=== PATIENT | female | born 1965 | race Caucasian/White ===

== ENCOUNTER 2020-01-30 20:40 | Emergency (ER) | payer OTHER, SELFPAY ==
[2020-01-30 20:41] VITALS: BP 182/98; PULSE 98; RESP 16; TEMP 36.4; O2SAT 99; BMI 31.0
--- NOTE | 2020-01-30 20:52 | CT_ITS ---
STUDY: CT ABDOMEN AND PELVIS WITHOUT CONTRAST REASON FOR EXAM: Female, 54 years old. LT FLANK PAIN,DYSURIA SINCE YESTERDAY,ELEVATED BP -- HX:ENDOMETRIAL ABLATION RADIATION DOSAGE (If Supplied By Facility): CTDIvol = ( 11.44 ) mGy, DLP = ( 537.49 ) mGycm TECHNIQUE: Transaxial images were obtained from the dome of the diaphragm to the symphysis pubis without oral contrast, and without intravenous contrast. Sagittal and coronal images were reconstructed. Individualized dose optimization techniques were used for this CT. COMPARISON: None. FINDINGS: The visualized lung bases are unremarkable. The visualized portions of the heart are within normal limits. Normal liver. Normal gallbladder and extrahepatic biliary system. Normal spleen. Normal pancreas. Normal bilateral adrenal glands. Normal right kidney. Up to 5 mm stones in the left kidney. Normal visualized stomach. Normal small intestine. Fecal retention in the colon. The appendix is not visualized. Normal abdominal aorta. Normal inferior vena cava. Normal retroperitoneum. Normal urinary bladder. Small fatty umbilical hernia. Normal osseous structures. CT/Abdomen/Pelvis without Cont IMPRESSION: Left renal stones. No hydronephrosis. Small fatty umbilical hernia. Colonic fecal retention. Electronically Signed: Jose Tejeda DO at 22:32 EST Tel [phone], Service support ,
[2020-01-30] MEDS: Morphine 4 MG/ML Syringe IV ×2 (21:05→22:37)
[2020-01-30] MEDS: Ondansetron 4 MG/2 ML Vial IV (21:06)
--- NOTE | 2020-01-30 21:26 | ED.DCSUM_ITS ---
- ER Visit Summary Date of Service: 01/30/20 Chief Complaint: Left flank pain History of Present Illness: The patient is a 54 F presenting with left flank pain. She states this started a few days ago. She states last week she was having dysuria. She has been drinking a lot of water and has urinary frequency. She denies hematuria. She has nausea with no vomiting. Denies fever. Denies injury. She has a family history of kidney stones. She has tried Motrin at home. Physical Examination: Vitals are stable. Patient is afebrile. Alert no acute distress. HEENT exam is unremarkable. Neck is supple. Lungs are clear and equal bilaterally. Heart is regular rate and rhythm. Abdomen is soft mild left lower quadrant tenderness. No guarding or rebound Back: Left CVA tenderness Extremities are unremarkable. Skin is warm and dry. No rash Remainder of exam is unremarkable. Emergency Department Course and Treatment: Patient is given IV fluids, morphine, Zofran. Urinalysis shows 5-10 white blood cells, 0-5 red blood cells. Urine cu lture was sent. CT abdomen pelvis shows left renal stones. No hydronephrosis. Small fatty umbilical hernia. Colonic fecal retention. Findings were discussed with the patient. She has an upcoming appointment with urology. She is given prescriptions for Keflex, [place], Zofran, and MiraLAX. She will follow-up with her primary care physician. She is advised to return to the ED for worsening complaints. Disposition: Discharge home Impression: Left flank pain This note was generated with [employer] dictation software. It may contain incorrect words, spelling, and punctuation that were not noted in review of the chart prior to signing ED Disposition - Plan for ED Patient: Instructions: ED Flank Pain Uncertain Cause Prescriptions: Cephalexin [Keflex] 500 mg PO Q6 #40 cap Prescription Printed Polyethylene Glycol 3350 [Miralax] 17 gm PO DAILY #10 packet Prescription Printed Hydrocodone Bitart/Apap 5-325 [[place] 5MG-325MG] 1 tab PO Q6H PRN PRN 3 Days #10 tab PRN Reason: Pain Prescription Printed Ondansetron [Zofran Odt] 4 mg PO Q8H PRN PRN #10 tab PRN Reason: Nausea Prescription Printed Referrals: Deniz Turner MD [Primary Care Provider] -
[2020-01-30 21:28] LABS: Bacteria 0 SEEN /hpf (None Seen); Mucous, Urine 0 SEEN /hpf (<or=2+)
[2020-01-30 21:43] LABS: Color, Urine Yellow (Yellow); Glucose, Dipstick Normal (Normal); Ketone-Dipstick Negative (Negative); Leukocyte Esterase-Dipstick 25 /ul (Negative); Nitrite-Dipstick Negative (Negative); Occult Blood-Urine Negative /ul (Negative); Protein-Dipstick Negative (Negative); Urine Bilirubin Dipstick Negative (Negative); Urine Clarity Clear (Clear); Urine Urobilinogen Normal (Normal)
[2020-01-30 22:03] LABS: Squamous Epithelial Cells - UA 0-5 SEEN /hpf (5-10); Transitional Epithelial - Ur 0 SEEN /hpf (0-5)
[2020-01-30 22:04] LABS: White Blood Cells 5-10 SEEN /hpf (0-5)
[2020-01-30 22:05] LABS: Red Blood Cells-Urine 0-5 SEEN /hpf (0-5)
--- NOTE | 2020-01-30 22:54 | ED.DEP ---
ED Disposition - Plan for ED Patient: Instructions: ED Flank Pain Uncertain Cause Prescriptions: Cephalexin [Keflex] 500 mg PO Q6 #40 cap Prescription Printed Polyethylene Glycol 3350 [Miralax] 17 gm PO DAILY #10 packet Prescription Printed Hydrocodone Bitart/Apap 5-325 [[place] 5MG-325MG] 1 tab PO Q6H PRN PRN 3 Days #10 tab PRN Reason: Pain Prescription Printed Ondansetron [Zofran Odt] 4 mg PO Q8H PRN PRN #10 tab PRN Reason: Nausea Prescription Printed Referrals: Deniz Turner MD [Primary Care Provider] -
[2020-01-30] MEDS: Cephalexin 250 MG Capsule 500 MG PO (23:13)
[2020-01-30 23:20] VITALS: BP 148/87; PULSE 100; RESP 18; O2SAT 98
== END 2020-01-30 23:22 | disposition home or self-care (01) ==
LOC: ED 20:59
PROVIDERS: Emergency Provider Emergency Medicine; PCP Family Medicine
DX: R10.9 Unspecified abdominal pain (principal)
CPT/HCPCS: 74176; 81001; 87086; 87088; 96361; 96374; 96375; 96376; 99283; J7040; A4216; J2405